=== PATIENT | female | born 1980 | race Caucasian/White ===

== ENCOUNTER 2021-06-24 16:06 | Emergency (ER) | payer OTHER, SELFPAY ==
[2021-06-24 16:18] VITALS: BP 138/93; PULSE 110; RESP 16; TEMP 36.6; O2SAT 100
--- NOTE | 2021-06-24 16:58 | ED.DENTAL ---
HPI - Dental/Oral General Chief complaint: Dental/Oral Stated complaint: ST Time Seen by Provider: 06/24/21 16:58 Source: patient Mode of arrival: ambulatory Limitations: no limitations History of Present Illness HPI Narrative: Patient is a 41-year-old female presenting for evaluation of sore throat. Patient states she has had a sore throat worsening over the past 3 days. Patient reports she initially thought that she was getting a tooth infection in her left lower molar, she has a history of wisdom tooth problem, states that from time to time she does have pain in that area and has had a dental infection in the past. Patient states that this time, the pain started to radiate into her throat. She denies fever, chills. She does report some swollen lymph nodes on the left. She has been able to swallow. Denies any shortness of breath. She denies cough, rhinorrhea or congestion. She denies history of Covid infection. She is not vaccinated for Covid. Denies recent sick contacts. No recent travel. She has been able to tolerate oral intake. Patient does state history of strep pharyngitis as an 11-year-old. She denies history of recurrent infections as an adult. No significant neck pain. No chest pain, cough or shortness of breath. Patient does have a severe allergy to penicillin. Related Data Allergies Allergy/AdvReac Type Severity Reaction Status Date / Time Penicillins Allergy Unknown Unknown Verified 06/24/21 16:56 1. PCN Allergy Unknown Unknown Uncoded 06/24/21 16:56 Review of Systems Review of Systems: CONSTITUTIONAL: Denies fever, chills, or sweats. EYES: Denies visual changes, redness, or discharge. ENT: Denies rhinorrhea, congestion, reports sore throat, denies otalgia CARDIOVASCULAR: Denies chest pain, palpitations, or edema. RESPIRATORY: Denies cough or dyspnea. GASTROINTESTINAL: Denies abdominal pain, nausea, vomiting, or diarrhea. GENITOURINARY: Denies dysuria or hematuria. SKIN: Denies rash or itching. MUSCULOSKELETAL: Denies back pain, joint pain, or myalgia. NEUROLOGIC: Denies headache, numbness, or weakness. [facility] Past Medical History Medical History (Updated 06/24/21 @ 17:24 by Юлия Appiah MD) Pain, dental Strep pharyngitis Social History Social History (Updated 06/24/21 @ 17:16 by Юлия Appiah MD) Smoking status: Current every day smoker Alcohol intake: never Substance use: never Occupation/Education: unemployed Gender identity (if verbalized by the patient): Female Exam Narrative: GENERAL: Awake, alert, conversant HEAD: Normocephalic, atraumatic. EYES: PERRLA and EOMI. ENT: Nares clear, no rhinorrhea or epistaxis. Mucous membranes moist. Bilateral tonsils are erythematous, edematous, with white exudate bilaterally. Uvula is midline. No trismus. NECK: Bilateral anterior cervical lymphadenopathy, no neck rigidity CHEST: No respiratory distress, breathing even and non labored HEART: Tachycardic rate, sinus rhythm ABDOMEN:Non distended, non tender EXTREMITIES: Normal range of motion. No edema. SKIN: Warm, dry, no rash. NEURO:No focal deficits. Alert and oriented x3 Course Vital Signs Vital signs: Vital Signs Temperature 36.6 C 06/24/21 16:18 Pulse Rate 110 H 06/24/21 16:18 Respiratory Rate 16 06/24/21 16:18 Blood Pressure 138/93 H 06/24/21 16:18 Pulse Oximetry 100 06/24/21 16:18 Temperature 36.6 C 06/24/21 16:18 Pulse Rate 110 H 06/24/21 16:18 Respiratory Rate 16 06/24/21 16:18 Blood Pressure 138/93 H 06/24/21 16:18 Pulse Oximetry 100 06/24/21 16:18 MDM - Dental/Oral MDM Narrative Medical decision making narrative: Patient presenting for evaluation of a sore throat. On exam, no extensive dental caries. Patient with Centor criteria into the moderate to high risk category (score of 3), will recommend empiric treatment given clinical appearance of symptoms. She is nontoxic-appearing, tolerating her secretions. Patient given dose
== END 2021-06-24 17:31 | disposition home or self-care (01) ==
PROVIDERS: Emergency Provider Emergency Medicine
DX: J02.0 Streptococcal pharyngitis (principal); F17.200 Nicotine dependence, unspecified, uncomplicated
CPT/HCPCS: 96372; 99283; J1100